=== PATIENT | male | born 1945 | race Caucasian/White ===

== ENCOUNTER 2020-12-08 07:51 | Outpatient (REF) | payer MEDICARE, SELFPAY | END 2020-12-08 07:52 | disposition home or self-care (01) | LOC: HO.HOSX 07:51 | PROVIDERS: Visit Provider Orthopaedic Surgery | DX: Z13.89 Encounter for screening for other disorder (principal) ==

== ENCOUNTER 2020-12-14 08:39 | Outpatient (REF) | payer MEDICARE, SELFPAY ==
--- NOTE | ~2020-12-14 | XR_ITS ---
EXAMINATION: XR PELVIS CLINICAL INFORMATION: Left hip pain COMPARISON: None TECHNIQUE: AP view of the pelvis. FINDINGS: There are 3 screws seen in the left proximal femur and probable old healed left femoral neck fracture.. There is collapse of the left femoral head, cortical irregularity and increased sclerosis. Findings are questionable for AVN. The right hip joint is normal appearing. Bones of the visualized pelvis are normal. There is soft tissue arterial calcification. XR/XR pelvis 1-2V IMPRESSION: Orthopedic hardware with 3 screws in the left proximal femur. Abnormal contour to the left femoral head with flattening and increased sclerosis questionable for AVN.
== END 2020-12-14 08:40 | disposition home or self-care (01) ==
LOC: HO.HOSX 08:39
PROVIDERS: Visit Provider Orthopaedic Surgery
DX: Z13.89 Encounter for screening for other disorder (principal)

== ENCOUNTER → 2020-12-18 14:40 | Outpatient (BNVA) | payer MEDICARE, SELFPAY | PROVIDERS: Visit Provider Orthopaedic Surgery | DX: M87.052 Idiopathic aseptic necrosis of left femur (principal); Z96.9 Presence of functional implant, unspecified | CPT/HCPCS: 72170; 99202 ==

== ENCOUNTER 2021-01-24 12:53 | Emergency (ER) | payer OTHER, SELFPAY ==
[2021-01-24 13:02] VITALS: BP 130/64; PULSE 64; RESP 16; TEMP 36.9; O2SAT 97; BMI 26.6
--- NOTE | 2021-01-24 13:20 | ED.GENADULT ---
HPI - General Adult General Chief complaint: General Medical Stated complaint: LEFT HIP PAIN Time Seen by Provider: 01/24/21 13:08 Source: EMS Mode of arrival: EMS Limitations: no limitations History of Present Illness HPI narrative: 75-year-old male with past medical history of hypertension here with complaints of left hip pain. The patient tells me that in 2018 he had 3 screws placed in his left hip for a fracture by [facility]. For the last 6 months he has had increasing pain to the left hip to the point now where he cannot ambulate due to the pain. He has been seen by [facility] Dr. Ken. He had x-rays of the hip December 18 which were concerning for avascular necrosis. He was scheduled for surgical repair January 16 but per patient he was unable to complete his pre operative clearance and so this was rescheduled. Unfortunately over the last 2 days his pain has become so severe that he cannot walk. He tells me he called orthopedic office today and was referred into the emergency department for further evaluation. Related Data Home Medications Medication Instructions Recorded Confirmed atenolol 50 mg tablet 50 mg PO DAILY 12/18/20 lorazepam 2 mg tablet 2 mg PO TID PRN 12/18/20 Previous Rx's Medication Instructions Recorded oxycodone 5 mg PO Q4H PRN #10 tab 01/24/21 Allergies Allergy/AdvReac Type Severity Reaction Status Date / Time No Known Allergies Allergy Verified 12/18/20 15:11 Review of Systems Review of Systems: Yes all other systems are reviewed and are negative Constitutional: Constitutional: Reports no additional constitutional complaints, Denies body ache(s), Denies chills, Denies fever(s), Denies headache(s) and Denies weakness Eyes: Eyes: Reports no additional eye complaints and Denies change in vision ENT: Reports system reviewed and no additional complaints, except as documented, Denies dizziness, Denies headache(s), Denies nasal congestion, Denies nasal discharge and Denies neck pain Cardiovascular: Cardiovascular: Reports no additional cardiovascular complaints, Denies chest pain, Denies leg edema and Denies dyspnea Respiratory: Respiratory: Reports no additional respiratory complaints, Denies cough and Denies dyspnea Gastrointestinal: Gastrointestinal: Reports no additional gastrointestinal complaints, Denies abdominal pain, Denies diarrhea, Denies nausea and Denies vomiting Genitourinary: Genitourinary: Denies urinary incontinence Musculoskeletal: Musculoskeletal: Reports no additional musculoskeletal complaints, Denies back pain, Reports arthralgias, Denies joint swelling, Reports limited range of motion, Denies neck pain, Denies numbness and Denies tingling Integumentary/Breasts: Skin/Breast: Reports system reviewed and no additional complaints, except as docu and Denies rash Neurologic: Reports system reviewed and no additional complaints, except as documented, Denies Abnormal speech present, Denies dizziness, Denies headache(s), Denies numbness, Denies tingling and Denies weakness [facility] Past Medical History Attestation statement: The following information was validated with the patient. 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 Physical Exam Vital Signs: Vital Signs: Last Vital Signs Temp 98.4 F 01/24/21 13:02 Pulse 64 01/24/21 13:02 Resp 16 01/24/21 13:02 BP 130/64 01/24/21 13:02 Pulse Ox 97 01/24/21 13:02 Body Mass Index 26.6 Const: General: cooperative, healthy appearing, comfortable and no acute distress Orientation/consciousness: patient oriented x3 Limitations: no limitations HENMT: Head: Yes normal to inspection Ears: hearing grossly normal bilaterally General nose exam: Normal external nose present Face and sinus: Yes normal facial exam Mouth: Normal oral and palatal mucosa present Throat: Yes posterior oropharynx normal Eyes: General: appearance normal, both eyes and all related structures Pupils: Equal, round and reactive pupils present Neck: Neck: Yes normal visual inspection Chest: Chest palpation & inspection: normal inspection of the chest Resp: Effort & Inspection: normal respiratory effort Auscultation: clear to auscultation bilaterally Cardio: Rate: regular rate Rhythm: regular rhythm Peripheral pulses: Peripheral pulses 2+ throughout GI: Inspection: Yes normal to inspection Palpation (GI): Soft to palpation and nontender Auscultation: normal bowel sounds Back/Spine/Pelvis: Thoracic/Lumbar Spine: thoracic and lumbar spine normal to inspection Skin: General skin exam: no rashes or lesions noted Neuro: General: patient oriented x3, no focal motor deficits and normal sensation to monofilament Cranial nerves: Yes Equal, round and reactive pupils present Cognition (Neuro): normal cognition Speech: No Abnormal speech present Gait exam (Neuro): Normal gait present Motor exam (neuro): 5/5 motor strength present throughout Extrem: General: Yes normal to inspection, Yes no pedal edema and Yes no calf tenderness Course Course Course Narrative: 75-year-old male here with acute on chronic left hip pain in the setting of a recent x-ray which was concerning for AVN. Outpatient surgery was postponed due to lacking preop there of clearance. Now can ambulate due to weight. Will discuss patient with his orthopedic 1415-discussed patient with orthopedic YARI Tinsley. She told me that the patient was recommended to have a total hip replacement due to AVN and hardware removal. However the patient needed preop clearance and has not completed his clearance. They tell me that they are unable to perform surgery until he was medically cleared. I discussed this with the patient. I did discuss with him that he may be placed in short-term rehab pending his completion of his preoperative clearance to be feels like he is unsafe to be home. He declined this. He tells me he is able to walk 3-4 steps with his walker at home and feels safe with this plan of care. I offered case management and physical therapy evaluation but the patient declined this and would like to go home immediately. I asked him how he was going to get to his preoperative clearance appointments and he tells me he has a friend who can assist him with this. Lengthy discussion at the bedside >15 minutes about plan of care. Patient resistant to all alternatives with the exception of discharge home. Reviewed worrisome signs and symptoms and when to return to the emergency department. Comfortable discharge home. Discharge Plan Discharge Clinical Impression: Avascular necrosis of bone of left hip Patient Disposition: Home, Self-Care Instructions: Hip Pain (ED) Additional Instructions: After speaking to orthopedics they tell me that you need to obtain preoperative clearance prior to them doing surgery on you. You were offered short-term rehab pending your clearance but you declined this Prescriptions: New oxycodone 5 mg tablet 5 mg PO Q4H PRN (Reason: pain) Qty: 10 RF: 0 No Action lorazepam 2 mg tablet 2 mg PO TID PRNRF: 0 atenolol 50 mg tablet 50 mg PO DAILY RF: 0 Referrals: Osvaldo Ken MD [Physician] - 2 days
--- NOTE | 2021-01-24 14:41 | PC.NURSE ---
patients called this facility verbally aggressive to staff and audibly upset regarding the fact that the patient is in too much pain and is unable to ambulate at home. This RN informed the patients that he needs preoperative testing in order to have the surgery per the Orthopedics team at [facility]. In the mean time, pain medication was sent to the patients pharmacy and short term rehab was offered to the patient. Patient denied the need for short term rehab and is calm and appropriate waiting for an ambulance to bring him home.
== END 2021-01-24 16:44 | disposition home or self-care (01) ==
PROVIDERS: Emergency Provider Emergency Medicine
DX: M87.052 Idiopathic aseptic necrosis of left femur (principal); M25.552 Pain in left hip; I10 Essential (primary) hypertension; F17.210 Nicotine dependence, cigarettes, uncomplicated; Z96.9 Presence of functional implant, unspecified
CPT/HCPCS: 99283

== ENCOUNTER 2021-03-15 08:47 | Outpatient (REF) | payer MEDICARE, SELFPAY ==
--- NOTE | ~2021-03-15 | XR_ITS ---
EXAMINATION: XR PELVIS XR HIP, LEFT CLINICAL INFORMATION: Pain. COMPARISON: Most recent pelvic radiograph dated 12/18/2020 TECHNIQUE: AP view of the pelvis. AP and frog-leg lateral views of the left hip. FINDINGS: Redemonstration of left proximal femoral orthopedic screws in unchanged alignment. No acute hardware fracture. No perihardware lucency to suggest loosening or infection. Redemonstration of left femoral head flattening/cortical collapse, slightly more prominent when compared to the prior examination. Severe left hip joint space narrowing with marginal osteophytes. More [id number] right hip joint space narrowing with marginal osteophytes. Pelvic phleboliths. XR/XR hip LT min 2V IMPRESSION: Left proximal femoral orthopedic screws without evidence of hardware complication. Flattening/collapse of the left femoral head, increased in prominence when compared to the most recent hip radiographs.
--- NOTE | ~2021-03-15 | XR_ITS ---
EXAMINATION: XR PELVIS XR HIP, LEFT CLINICAL INFORMATION: Pain. COMPARISON: Most recent pelvic radiograph dated 12/18/2020 TECHNIQUE: AP view of the pelvis. AP and frog-leg lateral views of the left hip. FINDINGS: Redemonstration of left proximal femoral orthopedic screws in unchanged alignment. No acute hardware fracture. No perihardware lucency to suggest loosening or infection. Redemonstration of left femoral head flattening/cortical collapse, slightly more prominent when compared to the prior examination. Severe left hip joint space narrowing with marginal osteophytes. More [id number] right hip joint space narrowing with marginal osteophytes. Pelvic phleboliths. XR/XR pelvis 1-2V IMPRESSION: Left proximal femoral orthopedic screws without evidence of hardware complication. Flattening/collapse of the left femoral head, increased in prominence when compared to the most recent hip radiographs.
== END 2021-03-15 08:48 | disposition home or self-care (01) ==
LOC: HO.HOSX 08:47
PROVIDERS: Visit Provider Orthopaedic Surgery
DX: M87.052 Idiopathic aseptic necrosis of left femur (principal); Z96.9 Presence of functional implant, unspecified
CPT/HCPCS: 72170; 73502; 99212

== ENCOUNTER 2021-04-10 06:44 | Inpatient (IN) | payer MEDICARE, SELFPAY ==
[2021-03-06 11:51] VITALS: BMI 30.4
--- NOTE | 2021-03-06 12:05 | P.CONAN_ITS ---
HPI - Anesthesia Eval Consult details Narrative: Resched to 04/04 to obtain PCP clearance 75yo M for Left Hip Total Replacement BP elevated at PCP clearance appt and PAT. Metoprolol increased to 100mg from 50mg. Has final BP review appt Friday at [place]. Instructed pt and daughter to monitor BP at home and compliance with metoprolol. REPLACED BY [facility] Active Problems Active Problems: All Active Problems (Updated 03/06/21 @ 11:37 by Marilyn Campbell RN) Retained orthopedic hardware (Acute) Avascular necrosis of bone of left hip (Acute) Past Medical History Medical History Anxiety Avascular necrosis of bone of left hip COVID-19 vaccine series completed HTN (hypertension) Hx of hepatitis C PTSD (post-traumatic stress disorder) Retained orthopedic hardware Smoker Family History Family history of problems with anesthesia: No Surgical History Surgical History History of femoral hernia repair History of hip surgery History of Problems with Anesthesia: No Social History Social History Are you a primary direct care professional to a significant other at home: No Do you presently have visiting nurse or other home services: No (Daughter Jess provides care) Alcohol intake: never Patient Tobacco Use Status: Current everyday Tobacco user Tobacco use type: Cigarette Cigarette Packs Per Day: 1 Cigarettes Per Day: 20.0 Years Smoked: 15 + service: Yes () Current occupational status: retired and disabled 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 Limited by hip pain Meds Allergies Allergy/AdvReac Type Severity Reaction Status Date / Time meperidine [From Demerol] Allergy Hives, Verified 03/15/21 10:25 Vomiting Home Medications Medication Instructions Recorded Confirmed Last Taken Type acetaminophen 500 mg tablet 1,000 mg PO Q6H PRN 03/06/21 03/06/21 Unknown History (Acetaminophen Extra Strength) metoprolol succinate 50 mg 100 mg PO DAILY 03/06/21 03/15/21 Unknown History tablet,extended release 24 hr lorazepam 0.5 mg tablet 0.5 mg PO TID PRN 03/15/21 03/15/21 Unknown History Exam Exam Date and Time: March 06, 2021 1205 Height,Weight and Vital Signs: Height 5 ft 3 in Weight 77.927 kg Pertinent Lab Results Pertinent Lab Results: [facility] PT/INR, CBC, CMP all WNL Narrative Narrative: EKG 01/2021 NSR @ 78 Cannot r/o anterior infarct, age undetermined ECHO 01/2021 Nml LV size and function with EF 60-65% No RWMA LV wall thickness is mildly increased Nml RV size and function LA is mildly dilated No significant valvular disease Airway TM Dist: >3cm Neck ROM: Full Denture: Upper and Lower (No lower teeth) Assessment and Plan Assessment Anesthesia Assessment: Anesthesia Plan Discussed and PAT Visit Final Anesthetic Review Family History of Problems with Anesthesia: No History of Problems with Anesthesia: No
[2021-03-15 11:42] VITALS: BP 182/111; PULSE 58; RESP 20; O2SAT 99
[2021-03-15 15:35] LABS: MRSA Nasal PCR NEGATIVE (Negative); SA Nasal PCR NEGATIVE (Negative)
--- NOTE | 2021-04-09 09:05 | P.CONAN_ITS ---
Documented by User: Venessa He NP 04/09/21 09:08 HPI - Anesthesia Eval Consult details Narrative: Resched to 04/04 to obtain PCP clearance 75yo M for Left Hip Total Replacement BP elevated at PCP clearance appt and PAT. Metoprolol increased to 100mg from 50mg. Has final BP review appt Friday at [place]. Instructed pt and daughter to monitor BP at home and compliance with metoprolol. BP remained elevated at initial BP check. 04/02/21 [facility] visit with BP check = 130/84 PCP cleared at low risk [facility] Active Problems Active Problems: All Active Problems (Updated 03/06/21 @ 11:37 by Marilyn Campbell RN) Retained orthopedic hardware (Acute) Avascular necrosis of bone of left hip (Acute) Past Medical History Medical History Anxiety Avascular necrosis of bone of left hip COVID-19 vaccine series completed HTN (hypertension) Hx of hepatitis C PTSD (post-traumatic stress disorder) Retained orthopedic hardware Smoker Family History Family history of problems with anesthesia: No Surgical History Surgical History History of femoral hernia repair History of hip surgery History of Problems with Anesthesia: No Social History Social History Are you a primary doggy daycare activities director to a significant other at home: No Do you presently have visiting nurse or other home services: No (Daughter Jess provides care) Alcohol intake: never Patient Tobacco Use Status: Current everyday Tobacco user Tobacco use type: Cigarette Cigarette Packs Per Day: 1 Cigarettes Per Day: 20.0 Years Smoked: 15 + Smoked in Last 30 Days: Yes Patient Interested in Nicotine Replacement: No Patient Given Instructions on How to Stop Smoking: Yes Date Education Initiated: 03/15/21 Use of substances other than those prescribed or required for medical reasons: No Have you been hit, kicked, punched, or otherwise hurt by someone within the past year? 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 Meds Allergies Allergy/AdvReac Type Severity Reaction Status Date / Time meperidine [From Demerol] Allergy Hives, Verified 03/15/21 10:25 Vomiting Home Medications Medication Instructions Recorded Confirmed Last Taken Type acetaminophen 500 mg tablet 1,000 mg PO Q6H PRN 03/06/21 03/06/21 Unknown History (Acetaminophen Extra Strength) metoprolol succinate 50 mg 100 mg PO DAILY 03/06/21 03/15/21 Unknown History tablet,extended release 24 hr lorazepam 0.5 mg tablet 0.5 mg PO TID PRN 03/15/21 03/15/21 Unknown History Exam Exam Date and Time: April 09, 2021 09 Height,Weight and Vital Signs: Height 5 ft 3 in Weight 77.927 kg Last Vital Signs Pulse 58 03/15/21 11:42 Resp 20 03/15/21 11:42 BP 182/111 H 03/15/21 11:42 Pulse Ox 99 03/15/21 11:42 Pertinent Lab Results Pertinent Lab Results: Laboratory Tests 03/15/21 03/15/21 11:52 12:31 Nasal Screen MRSA (PCR) NEGATIVE Nasal S. aureus Screen NEGATIVE Nasal MRSA/S.aureus Interp SEE NOTE Blood Type B Negative Antibody Screen NEGATIVE [facility] PT/INR, CBC, CMP all WNL Narrative Narrative: EKG 01/2021 NSR @ 78 Cannot r/o anterior infarct, age undetermined ECHO 01/2021 Nml LV size and function with EF 60-65% No RWMA LV wall thickness is mildly increased Nml RV size and function LA is mildly dilated No significant valvular disease Assessment and Plan Assessment Anesthesia Assessment: Anesthesia Plan Discussed, Smoking Cess. Discussed and PAT Visit (03/06/21) Final Anesthetic Review Family History of Problems with Anesthesia: No History of Problems with Anesthesia: No Documented by User: Yani Westfall MD 04/10/21 07:08 [facility] Past Medical History Medical History Anxiety Avascular necrosis of bone of left hip COVID-19 vaccine series completed HTN (hypertension) Hx of hepatitis C PTSD (post-traumatic stress disorder) Retained orthopedic hardware Smoker Surgical History Surgical History History of femoral hernia repair History of hip surgery Social History Social History Are you a primary doggy daycare activities director to a significant other at home: No Do you presently have visiting nurse or other home services: No (Daughter Jess provides care) Alcohol intake: never Patient Tobacco Use Status: Current everyday Tobacco user Tobacco use type: Cigarette Cigarette Packs Per Day: 1 Cigarettes Per Day: 20.0 Years Smoked: 15 + Smoked in Last 30 Days: Yes Patient Interested in Nicotine Replacement: No Patient Given Instructions on How to Stop Smoking: Yes Date Education Initiated: 03/15/21 Use of substances other than those prescribed or required for medical reasons: No Have you been hit, kicked, punched, or otherwise hurt by someone within the past year? 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 Meds Allergies Allergy/AdvReac Type Severity Reaction Status Date / Time meperidine [From Demerol] Allergy Hives, Verified 03/15/21 10:25 Vomiting Home Medications Medication Instructions Recorded Confirmed Last Taken Type acetaminophen 500 mg tablet 1,000 mg PO Q6H PRN 03/06/21 03/06/21 Unknown History (Acetaminophen Extra Strength) metoprolol succinate 50 mg 100 mg PO DAILY 03/06/21 03/15/21 Unknown History tablet,extended release 24 hr lorazepam 0.5 mg tablet 0.5 mg PO TID PRN 03/15/21 03/15/21 Unknown History Exam Airway Mallampati Class: II TM Dist: >3cm Neck ROM: Full Denture: Upper Assessment and Plan Final Anesthetic Review NPO: Yes ASA Class: II Final Preanesthetic Review: No Changes in Pt Med Stat, Meds/Allgs Chart Rev iewed, Consent Obtained/Reviewed and Anes Risks/Benef Reviewed Patient Risk: Low Procedure Risk: Intermediate Assessment/Block/Sedation in SS: Assess/Block/Sedation-SS Anesthetic Plan Anesthetic Plan: GA Disposition: Standard PACU
[2021-04-10] VITALS (15 sets, daily range): BP systolic 95–137; BP diastolic 64–107; PULSE 76–94; RESP 16–18; TEMP 36.1–37; O2SAT 96–100
--- NOTE | ~2021-04-10 | XR_ITS ---
EXAMINATION: XR PELVIS CLINICAL INFORMATION: Left hip replacement COMPARISON: Previous x-ray 03/15/2021 TECHNIQUE: AP view of the pelvis. FINDINGS: There is a new left hip replacement in satisfactory position. No fracture or dislocation is seen. There are postoperative changes to the soft tissues. There is mild arthritis at the right hip. There are degenerative changes of the lower lumbar spine. XR/XR pelvis 1-2V IMPRESSION: Satisfactory appearance of left hip replacement.
[2021-04-10] MEDS: oxyCODONE HCl ER 10 MG TAB.ER.12H PO ×2 (07:06→21:37)
[2021-04-10 07:25] LABS: COVID-19 Test Negative (Negative)
--- NOTE | 2021-04-10 07:34 | MHC.SHP ---
Pre-Procedural Eval Section A Date of Service: 04/10/21 The patient is an INPATIENT: No Changes since office visit: Yes Patient answered all questions; No Cold of Flu in the past 2 weeks, No New Medical Problems and No Changes in Medication The History & Physical has been completed within 30 days and I have reviewed it.: Yes Section B Chief Complaint: Avascular necrosis left hip Allergies: Allergies Allergy/AdvReac Type Severity Reaction Status Date / Time meperidine [From Demerol] Allergy Hives, Verified 03/15/21 10:25 Vomiting Plan I have reviewed the history and physical and performed a pertinent physical examination on my patient. No changes have occurred unless specified.
--- NOTE | 2021-04-10 10:01 | PM.OP ---
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
--- NOTE | 2021-04-10 10:15 | P.OP_ITS ---
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 All bony prominences were well padded and the limb was prepped and draped in standard sterile fashion. Time-out was called to identify proper site procedure proper surgeon IV antibiotics and 1 g of transaxemic acid were administered. I began by making a curvilinear incision over the posterolateral aspect of the greater trochanter. Dissection was taken down to the tensor fascia which was incised in line with the incision and a Charnley retractor was placed. Cautery was used to maintain hemostasis. The hip was internally rotated and the external rotators were identified. The vessels were cauterized and a full-thickness capsular/external rotator layer was developed starting just proximal to the piriformis. This layer was tagged and a dull Hohmann retractor was placed underneath the neck in the hip was dislocated. The head was deformed and diminutive with violation of the articular surface with a screw head. I then made an incision over the prior hip screw incision and remoived the three cannulated hip screws without complication. A neck cut was then made 1 cm proximal to the lesser trochanter and the head and neck were removed. I then placed my anterior-posterior acetabular retractors and performed a labrectomy. The superior wall was partially eroded. I then started with a 46 and sequentially reamed up to a size 54 and impacted a 54 multi-hole revision cup at approximately 45 degrees of inclination and 25 degrees of version. Because of the absent postero-superior wall I placed 2 35 mm acetabular screws using standard AO technique. I then placed a 20 deg post lipped liner and turned my attention to the femur. I identified the piriformis insertion and used this as a starting point for my kayla cutter. The medius tendon was protected with a Hibs retractor. I then used a Charnley awl to identify the canal and a curved curette to remove the lateral bone. I irrigated copiously. I then reamed to a 10 and then sequentially broached in the patient's natural version to a size #10 and placed my trial implants. He had been short for a long time and was tight. Using a trail head I took the hip through range of motion. I was very satisfied with the stability and length was as much as I could obtain using a 0 head Therefore I removed all instrumentation and copiously irrigated. I placed my final femoral implant and again took the hip through range of motion and was satisfied with t he stability and length. I placed my final +0 26 cobablt chrome head. I then irrigated for 3 minutes with iodine and placed 1 g of local tranaxemic acid. I then performed a capsular closure with 2.0 fiberwire, Addie's fascia with 0 Vicryl, subcuticular with 2-0 Vicryl and the skin with lior. Patient was placed into a sterile dressing. Radiographs were obtained at the completion of the case and I was satisfied with the component position. Patient was extubated brought to the recovery room in stable condition.
[2021-04-10] MEDS: Dextrose 5 % and 0.45 % NaCl 1,000 ML 80 ML IVCONT (12:56)
[2021-04-10] MEDS: 0.9 % Sodium Chloride Flush 3 ML SYRINGE IVFLUSH (12:56)
--- NOTE | 2021-04-10 14:57 | P.CONHOSP_ITS ---
History of Present Illness Data of Consult Service Date: 04/10/21 Requesting physician: Osvaldo IZQUIERDO Reason for consult: medical co-management 75yo M with HTN, PTSD, anxiety, tobacco abuse who underwent left JESSICA + TRACEE today for post traumatic OA. He takes metoprolol and lorazepam. He smokes less than 1/2 ppd. No hx of [place] or CVA. Denies fever, chills, chest pain, or dyspnea. Review of Systems Review of Systems: Yes all other systems are reviewed and are negative [facility] Medical History Anxiety Avascular necrosis of bone of left hip COVID-19 vaccine series completed HTN (hypertension) Hx of hepatitis C PTSD (post-traumatic stress disorder) Retained orthopedic hardware Smoker Pertinent family history: no anesthesia complications Surgical History History of femoral hernia repair History of hip surgery Social History Are you a primary care aide to a significant other at home: No Do you presently have visiting nurse or other home services: No (Daughter Jess provides care) Alcohol intake: never Patient Tobacco Use Status: Current everyday Tobacco user Tobacco use type: Cigarette Cigarette Packs Per Day: 1 Cigarettes Per Day: 20.0 Years Smoked: 15 + Smoked in Last 30 Days: Yes Patient Interested in Nicotine Replacement: No Patient Given Instructions on How to Stop Smoking: Yes Date Education Initiated: 03/15/21 Second Hand Smoke Exposure: No Use of substances other than those prescribed or required for medical reasons: No Have you been hit, kicked, punched, or otherwise hurt by someone within the past year? 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 Meds Allergies Allergy/AdvReac Type Severity Reaction Status Date / Time meperidine [From Demerol] Allergy Hives, Verified 03/15/21 10:25 Vomiting Active Medications: Current Medications Acetaminophen (Acetaminophen 325 Mg Tablet) 650 mg PO ONCE PRN PRN Reason: Pain, Mild (Pain Scale 1-3) Acetaminophen (Acetaminophen 325 Mg Tablet) 650 mg PO Q6H PRN PRN Reason: Pain, Mild (Pain Scale 1-3) Celecoxib (Celecoxib 200 Mg Capsule) 200 mg PO BID [facility] Docusate Sodium (Docusate Sodium 100 Mg Capsule) 100 mg PO BID [facility] Hydromorphone HCl (Hydromorphone Hcl 0.5 Mg/0.5 Ml Syringe) 0.5 mg IVPUSH Q5M PRN; Protocol PRN Reason: Pain, Severe (Pain Scale 7-10) Hydromorphone HCl (Hydromorphone Hcl 0.5 Mg/0.5 Ml Syringe) 0.25 mg IVPUSH Q4H PRN; Protocol PRN Reason: Pain, Severe (Pain Scale 7-10) Dextrose/Sodium Chloride (D51/2ns) 1,000 mls @ 80 mls/hr IVCONT .[id number] [facility] Last Admin: 04/10/21 12:56 Dose: 80 mls/hr Documented by: Cefazolin Sodium/Dextrose (Ancef) 2 gm in 50 mls @ 100 mls/hr IV POSTOP [facility] Nicotine (Nicotine 7 Mg Patch.Td24) 7 mg TRANSDERMA DAILY [facility] Ondansetron HCl (Ondansetron Hcl 4 Mg/2 Ml Vial) 4 mg IVPUSH ONCE PRN PRN Reason: Nausea and Vomiting Ondansetron HCl (Ondansetron Hcl 4 Mg/2 Ml Vial) 4 mg IVPUSH Q8H PRN PRN Reason: Nausea and Vomiting Oxycodone HCl (Oxycodone Hcl Immed Release 5 Mg Tablet) 5 mg PO ONCE PRN PRN Reason: Pain, Severe (Pain Scale 7-10) Oxycodone HCl (Oxycodone Hcl Immed Release 5 Mg Tablet) 10 mg PO Q4H PRN PRN Reason: Pain, Moderate (Pain Scale 4-6 Oxycodone HCl (Oxycodone Hcl Er 10 Mg Tab.Er.12h) 10 mg PO BID [facility] Sodium Chloride (0.9 % Sodium Chloride Flush 3 Ml Syringe) 3 ml IVFLUSH QSHIFT [facility] Last Admin: 04/10/21 12:56 Dose: 3 ml Documented by: Home Medications Medication Instructions Recorded Confirmed Last Taken Type acetaminophen 500 mg tablet 1,000 mg PO Q6H PRN 03/06/21 03/06/21 Unknown History (Acetaminophen Extra Strength) metoprolol succinate 50 mg 100 mg PO DAILY 03/06/21 03/15/21 Unknown History tablet,extended release 24 hr lorazepam 0.5 mg tablet 0.5 mg PO TID PRN 03/15/21 03/15/21 Unknown History Physical Exam Vital Signs and Narrative: Vital Signs: Last Vital Signs Temp 97.7 F 04/10/21 12:34 Pulse 76 04/10/21 14:05 Resp 16 04/10/21 12:34 BP 107/87 04/10/21 14:05 Pulse Ox 100 04/10/21 14:05 Body Mass Index 30.4 Gen: in no acute distress HEENT: sclera anicteric, moist mucus membranes Neck: supple Lungs: clear to auscultation bilaterally Heart: regular rate and rhythm, no murmurs Abd: soft, non-tender, non-distended Ext: no edema Skin: warm/well-perfused Neuro: alert and oriented x3, no focal findings Psych: appropriate affect Results Labs Labs: Laboratory Results - last 24 hr 04/10/21 04/10/21 06:37 06:48 COVID-19 (MARK[facility]) Negative COVID-19 Clin Com See Note Blood Type B Negative Antibody Screen NEGATIVE Imaging Radiologist's Impressions: Impressions Pelvis X-Ray 04/10/21 09:43 IMPRESSION: Satisfactory appearance of left hip replacement. Assessment and Plan (1) HTN (hypertension): Status: Acute 75yo M with HTN, PTSD, anxiety, tobacco abuse who underwent left JESSICA + TRACEE today for post traumatic OA. Medicine consultation for management of comorbid issues # HTN - metoprolol succinate # PTSD/anxiety - prn lorazepam # tobacco abuse - NRT # VTE ppx - pharmacologic prophylaxis for 28-35d postop as per primary Ortho team
--- NOTE | 2021-04-10 14:59 | PC.NURSE ---
Patient arrived from PACU and is A&Ox3 but has slurred speech. Head to toe neuro assessment performed by this nurse and was WNL besides slurred speech. Dr. Puckett was made aware and assessed patient. No new orders at this time.
[2021-04-10] MEDS: Nicotine 7 MG PATCH.TD24 TRANSDERMA (15:50)
[2021-04-10] MEDS: LORazepam 0.5 MG TABLET PO (15:51)
[2021-04-10] MEDS: Celecoxib 200 MG CAPSULE PO (21:37)
[2021-04-10] MEDS: HYDROmorphone HCl 0.5 MG/0.5 ML SYRINGE 0.25 MG IVPUSH (22:40)
[2021-04-11] VITALS (7 sets, daily range): BP systolic 95–131; BP diastolic 65–75; PULSE 89–103; RESP 16–18; TEMP 36.1–37.1; O2SAT 95–99
[2021-04-11] MEDS: Dextrose 5 % and 0.45 % NaCl 1,000 ML 80 ML IVCONT ×2 (02:36→15:38)
[2021-04-11] MEDS: HYDROmorphone HCl 0.5 MG/0.5 ML SYRINGE 0.25 MG IVPUSH ×2 (05:03→15:35)
[2021-04-11 06:26] LABS: Hemoglobin 12.2 g/dl (14.0-18.0); Imm Gran Abs Auto 0.06 X10*3/uL (0.00-0.03); MANUAL DIFF FLAG SCAN; Monocytes Percent Auto 7.5 % (2-11); PLT CLUMP 1; SCAN SMEAR FLAG 1
[2021-04-11 06:28] LABS: Basophils Percent Auto 0.3 % (0-2); Eosinophils Absolute Auto 0.1 X10*3/uL (0.0-0.4); Eosinophils Percent Auto 0.5 % (0-4); Hematocrit 34.5 % (42-52); Imm Gran Pct Auto 0.7 % (0.0-0.4); Lymphocytes Absolute Auto 2.2 X10*3/uL (1.2-4.9); Lymphocytes Percent Auto 23.8 % (20-40); Mean Corpuscular HGB Conc 35.4 g/dl (31.0-36.0); Mean Corpuscular Hemoglobin 29.7 pg (27.0-33.0); Mean Corpuscular Volume 83.9 fL (80-98); Mean Platelet Volume 10.7 fL (9.4-12.4); Monocytes Absolute Auto 0.7 X10*3/uL (0.1-1.2); Neutrophils Absolute Auto 6.2 X10*3/uL (2.0-8.3); Neutrophils Percent Auto 67.2 % (45-73); Red Blood Count 4.11 X10*6/uL (4.60-5.80); Red Cell Distribution Width 12.7 % (11.0-16.0); White Blood Count 9.2 X10*3/uL (4.8-10.8)
[2021-04-11 06:31] LABS: Platelet Count 136 X10*3/uL (160-400)
[2021-04-11 06:32] LABS: SLIDE REVIEW VERIFIED
[2021-04-11 06:35] LABS: Anion Gap 11 (12-20); Blood Urea Nitrogen 11 mg/dL (9-16); Calcium 8.1 mg/dL (8.4-10.2); Carbon Dioxide 27 mmol/L (22-29); Chloride 99 mmol/L (96-108); Creatinine Clr Calc Pharmacy 75.9; Estimated Glomerular Filt Rate > 60; Glucose Fasting 109 mg/dL (60-99); Potassium 3.9 mmol/L (3.3-5.1); Sodium 133 mmol/L (135-145)
[2021-04-11] MEDS: Nicotine 7 MG PATCH.TD24 TRANSDERMA (08:18)
[2021-04-11] MEDS: oxyCODONE HCl ER 10 MG TAB.ER.12H PO ×2 (08:19→21:08)
[2021-04-11] MEDS: Celecoxib 200 MG CAPSULE PO ×2 (08:19→21:08)
[2021-04-11] MEDS: Docusate Sodium 100 MG CAPSULE PO (08:19)
--- NOTE | 2021-04-11 09:42 | PM.PNORT ---
Subjective Subjective Date of Service: 04/11/21 Interval history: POD1 s/p LTHA. Patient resting comfortably in bed. Pain is well managed. No overnight events. Physical Exam Vital Signs: Vital Signs: Last Vital Signs Temp 98.4 F 04/11/21 07:35 Pulse 99 04/11/21 07:35 Resp 16 04/11/21 07:35 BP 119/75 04/11/21 07:35 Pulse Ox 98 04/11/21 09:30 Body Mass Index 30.4 Const: General: cooperative, healthy appearing and no acute distress Resp: Effort & Inspection: normal respiratory effort and able to speak in complete sentences Cardio: Rate: regular rate Peripheral pulses: Peripheral pulses 2+ throughout GI: Palpation (GI): Soft to palpation Skin: Lesions: no lesions Rashes: no rashes Extrem: Other: LT hip aquacel is clean. dry, and intact. Patient is able to dorsiflex and plantarflex. NVI Procedures Date of Service Date of Service: 04/11/21 Progress Note: A&P Assessment and plan (1) S/P total left hip arthroplasty: Status: Acute Assessment and Plan: Continue pain mgmnt Begin Lovenox for dvt ppx begin PT for LTHA Dispo planning-Pending PT eval, pain mgmnt Fall Risk Details Current Medications: Current Medications Acetaminophen (Acetaminophen 325 Mg Tablet) 650 mg PO ONCE PRN PRN Reason: Pain, Mild (Pain Scale 1-3) Acetaminophen (Acetaminophen 325 Mg Tablet) 650 mg PO Q6H PRN PRN Reason: Pain, Mild (Pain Scale 1-3) Celecoxib (Celecoxib 200 Mg Capsule) 200 mg PO BID [facility] Last Admin: 04/11/21 08:19 Dose: 200 mg Documented by: Docusate Sodium (Docusate Sodium 100 Mg Capsule) 100 mg PO BID [facility] Last Admin: 04/11/21 08:19 Dose: 100 mg Documented by: Hydromorphone HCl (Hydromorphone Hcl 0.5 Mg/0.5 Ml Syringe) 0.5 mg IVPUSH Q5M PRN; Protocol PRN Reason: Pain, Severe (Pain Scale 7-10) Hydromorphone HCl (Hydromorphone Hcl 0.5 Mg/0.5 Ml Syringe) 0.25 mg IVPUSH Q4H PRN; Protocol PRN Reason: Pain, Severe (Pain Scale 7-10) Last Admin: 04/11/21 05:03 Dose: 0.25 mg Documented by: Dextrose/Sodium Chloride (D51/2ns) 1,000 mls @ 80 mls/hr IVCONT .[id number] [facility] Last Admin: 04/11/21 02:36 Dose: 80 mls/hr Documented by: Cefazolin Sodium/Dextrose (Ancef) 2 gm in 50 mls @ 100 mls/hr IV POSTOP [facility] Lorazepam (Lorazepam 0.5 Mg Tablet) 0.5 mg PO TID PRN PRN Reason: Anxiety Last Admin: 04/10/21 15:51 Dose: 0.5 mg Documented by: Metoprolol Succinate (Metoprolol Succinate Er 100 Mg Tab.Er.24h) 100 mg PO DAILY [facility]; Protocol Last Admin: 04/11/21 08:27 Dose: Not Given Documented by: Nicotine (Nicotine 7 Mg Patch.Td24) 7 mg TRANSDERMA DAILY [facility] Last Admin: 04/11/21 08:18 Dose: 7 mg Documented by: Ondansetron HCl (Ondansetron Hcl 4 Mg/2 Ml Vial) 4 mg IVPUSH ONCE PRN PRN Reason: Nausea and Vomiting Ondansetron HCl (Ondansetron Hcl 4 Mg/2 Ml Vial) 4 mg IVPUSH Q8H PRN PRN Reason: Nausea and Vomiting Oxycodone HCl (Oxycodone Hcl Immed Release 5 Mg Tablet) 5 mg PO ONCE PRN PRN Reason: Pain, Severe (Pain Scale 7-10) Oxycodone HCl (Oxycodone Hcl Immed Release 5 Mg Tablet) 10 mg PO Q4H PRN PRN Reason: Pain, Moderate (Pain Scale 4-6 Oxycodone HCl (Oxycodone Hcl Er 10 Mg Tab.Er.12h) 10 mg PO BID [facility] Last Admin: 04/11/21 08:19 Dose: 10 mg Documented by: Sodium Chloride (0.9 % Sodium Chloride Flush 3 Ml Syringe) 3 ml IVFLUSH QSHIFT [facility] Last Admin: 04/11/21 07:18 Dose: Not Given Documented by: Time Spent With Patient Time: Total time spent is greater than 50% in coordination of care (as documented) at patient's floor/unit and/or counseling patient: Time with patient: less than 15 minutes Quality Stroke Does the patient have a stroke diagnosis?: No VTE Prior VTE?: No VTE Risk Level:: Surgical - high VTE Device Contraindication: N/A - Device Ordered VTE Drug Contraindication: N/A - Med Ordered
--- NOTE | 2021-04-11 09:51 | HO.POSTANES ---
Post Anesthesia Evaluation Post Anesthesia Evaluation Vital Signs: Vital Signs Temp Pulse Resp BP Pulse Ox 04/11/21 09:30 98 04/11/21 07:35 98.4 F 99 16 119/75 98 04/11/21 04:00 97 F 89 18 114/72 99 04/10/21 23:47 96.9 F 88 18 108/69 97 Anesthesia: General Endotracheal-GETA Mental Status: Awake Pain Control: Satisfactory Nausea/Vomiting: None Hydration: Adequate Anesthesia-Related Issues: No Anes. Related Issues
--- NOTE | 2021-04-11 10:24 | MHC.CM.PN ---
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 LAUREANO AT THE [facility], PT REPORTS HE HAS A HCP AND IT IS HIS DTR CHARU RETANA [phone], COPY REQUESTED. D/C PLAN: HOME W/SERVICES,DTR VS AMBULANCE FOR TRANSPORT
[2021-04-11] MEDS: ondansetron HCL 4 MG/2 ML VIAL IVPUSH (10:49)
[2021-04-11] MEDS: HYDROmorphone HCl 0.5 MG/0.5 ML SYRINGE IVPUSH (10:49)
[2021-04-11] MEDS: LORazepam 0.5 MG TABLET PO ×2 (10:49→16:18)
--- NOTE | 2021-04-11 10:56 | HO.PM.IMPN ---
Subjective Subjective Date of Service: 04/11/21 Interval History: Postop soreness No fever No chest pain No dyspnea Review of Systems Review of Systems: Yes all other systems are reviewed and are negative Physical Exam Vital Signs: Vital Signs: Last Vital Signs Temp 98.4 F 04/11/21 07:35 Pulse 99 04/11/21 07:35 Resp 16 04/11/21 07:35 BP 119/75 04/11/21 07:35 Pulse Ox 98 04/11/21 10:03 Body Mass Index 30.4 Gen: in no acute distress HEENT: sclera anicteric, moist mucus membranes Neck: supple Lungs: clear to auscultation bilaterally Heart: regular rate and rhythm, no murmurs Abd: soft, non-tender, non-distended Ext: no edema Skin: warm/well-perfused Neuro: alert and oriented x3, no focal findings Psych: appropriate affect Objective Data Active Medications Acetaminophen (Acetaminophen 325 Mg Tablet) 650 mg PO ONCE PRN PRN Reason: Pain, Mild (Pain Scale 1-3) Acetaminophen (Acetaminophen 325 Mg Tablet) 650 mg PO Q6H PRN PRN Reason: Pain, Mild (Pain Scale 1-3) Celecoxib (Celecoxib 200 Mg Capsule) 200 mg PO BID [facility] Last Admin: 04/11/21 08:19 Dose: 200 mg Documented by: JULES Docusate Sodium (Docusate Sodium 100 Mg Capsule) 100 mg PO BID [facility] Last Admin: 04/11/21 08:19 Dose: 100 mg Documented by: JULES Enoxaparin Sodium (Enoxaparin Sodium 40 Mg/0.4 Ml Syringe) 40 mg SUBCUT Q24H [facility] Hydromorphone HCl (Hydromorphone Hcl 0.5 Mg/0.5 Ml Syringe) 0.5 mg IVPUSH Q5M PRN; Protocol PRN Reason: Pain, Severe (Pain Scale 7-10) Hydromorphone HCl (Hydromorphone Hcl 0.5 Mg/0.5 Ml Syringe) 0.25 mg IVPUSH Q4H PRN; Protocol PRN Reason: Pain, Severe (Pain Scale 7-10) Last Admin: 04/11/21 05:03 Dose: 0.25 mg Documented by: AIMEERISApple Dextrose/Sodium Chloride (D51/2ns) 1,000 mls @ 80 mls/hr IVCONT .[id number] [facility] Last Admin: 04/11/21 02:36 Dose: 80 mls/hr Documented by: AIMEERISM Cefazolin Sodium/Dextrose (Ancef) 2 gm in 50 mls @ 100 mls/hr IV POSTOP [facility] Lorazepam (Lorazepam 0.5 Mg Tablet) 0.5 mg PO TID PRN PRN Reason: Anxiety Last Admin: 04/10/21 15:51 Dose: 0.5 mg Documented by: BOBBI Metoprolol Succinate (Metoprolol Succinate Er 100 Mg Tab.Er.24h) 100 mg PO DAILY [facility]; Protocol Last Admin: 04/11/21 08:27 Dose: Not Given Documented by: JULES Non-Admin Reason: Patient Refused Nicotine (Nicotine 7 Mg Patch.Td24) 7 mg TRANSDERMA DAILY [facility] Last Admin: 04/11/21 08:18 Dose: 7 mg Documented by: JULES Ondansetron HCl (Ondansetron Hcl 4 Mg/2 Ml Vial) 4 mg IVPUSH ONCE PRN PRN Reason: Nausea and Vomiting Ondansetron HCl (Ondansetron Hcl 4 Mg/2 Ml Vial) 4 mg IVPUSH Q8H PRN PRN Reason: Nausea and Vomiting Oxycodone HCl (Oxycodone Hcl Immed Release 5 Mg Tablet) 5 mg PO ONCE PRN PRN Reason: Pain, Severe (Pain Scale 7-10) Oxycodone HCl (Oxycodone Hcl Immed Release 5 Mg Tablet) 10 mg PO Q4H PRN PRN Reason: Pain, Moderate (Pain Scale 4-6 Oxycodone HCl (Oxycodone Hcl Er 10 Mg Tab.Er.12h) 10 mg PO BID [facility] Last Admin: 04/11/21 08:19 Dose: 10 mg Documented by: JULES Pharmacy Consult (Consult Rx Perform Med Rec) 1 each MISCELLANE ONCE PRN PRN Reason: Consult order Sodium Chloride (0.9 % Sodium Chloride Flush 3 Ml Syringe) 3 ml IVFLUSH QSHIFT [facility] Last Admin: 04/11/21 07:18 Dose: Not Given Documented by: JULES Non-Admin Reason: IV Running Labs CBC & Chem 7: 04/11/21 05:56 04/11/21 05:56 Labs: Laboratory Results - last 24 hr 10/06/21 10/06/21 05:56 05:56 MCV 83.9 MCH 29.7 MCHC 35.4 RDW 12.7 Plt Count 136 L MPV 10.7 Immature Gran % (Auto) 0.7 H Neut % (Auto) 67.2 Lymph % (Auto) 23.8 [place] % (Auto) 7.5 Eos % (Auto) 0.5 Baso % (Auto) 0.3 Lymph # (Auto) 2.2 [place] # (Auto) 0.7 Eos # (Auto) 0.1 Baso # (Auto) 0.0 Abs Immat Gran (auto) 0.06 H Absolute Neuts (auto) 6.2 Absolute Nucleated RBC 0.000 Nucleated RBC % (auto) 0.0 Smear Tech's Comments VERIFIED Anion Gap 11 L Estim Creat Clear Calc 75.9 Estimated GFR > 60 Fasting Glucose 109 H Calcium 8.1 L Assessment and Plan (1) HTN (hypertension): Status: Acute Assessment and Plan: 75yo M with HTN, PTSD, anxiety, tobacco abuse POD #1 left JESSICA + TRACEE for pos traumatic OA medicine consultation for management of comorbid issues # HTN - continue metoprolol succinate # PTSD/anxiety - prn lorazepam # tobacco abuse - NRT # VTE ppx - pharmacologic prophylaxis for 28-35d postop with LMWH as per primary Ortho team Quality Stroke Does the patient have a stroke diagnosis?: No VTE Prior VTE?: No VTE Risk Level:: Surgical - high VTE Device Contraindication: N/A - Device Ordered VTE Drug Contraindication: N/A - Med Ordered
--- NOTE | 2021-04-11 12:40 | PHA.MEDREC ---
Pharmacy Consult ? Medication Reconciliation Pharmacy has completed the medication reconciliation. There are no remarkable issues. Patient report he takes 3 BP medications and ativan. [facility] Ricci JuárezD
[2021-04-11] MEDS: 0.9 % Sodium Chloride Flush 3 ML SYRINGE IVFLUSH (15:39)
[2021-04-12] VITALS (9 sets, daily range): BP systolic 109–128; BP diastolic 64–86; PULSE 72–93; RESP 16–19; TEMP 36.6–37.7; O2SAT 93–98
[2021-04-12] MEDS: oxyCODONE HCl Immed Release 5 MG TABLET PO (00:10)
[2021-04-12] MEDS: LORazepam 0.5 MG TABLET PO ×2 (03:57→16:38)
[2021-04-12 05:23] LABS: Basophils Percent Auto 0.4 % (0-2); Hemoglobin 10.5 g/dl (14.0-18.0); Imm Gran Abs Auto 0.06 X10*3/uL (0.00-0.03); Imm Gran Pct Auto 0.8 % (0.0-0.4); MANUAL DIFF FLAG SCAN; Monocytes Percent Auto 9.2 % (2-11); PLT CLUMP 1; SCAN SMEAR FLAG 1
[2021-04-12 05:25] LABS: Eosinophils Percent Auto 0.5 % (0-4); Hematocrit 30.2 % (42-52); Lymphocytes Absolute Auto 1.6 X10*3/uL (1.2-4.9); Lymphocytes Percent Auto 21.9 % (20-40); Mean Corpuscular HGB Conc 34.8 g/dl (31.0-36.0); Mean Corpuscular Hemoglobin 29.6 pg (27.0-33.0); Mean Corpuscular Volume 85.1 fL (80-98); Mean Platelet Volume 10.8 fL (9.4-12.4); Monocytes Absolute Auto 0.7 X10*3/uL (0.1-1.2); Neutrophils Percent Auto 67.2 % (45-73); Platelet Count 121 X10*3/uL (160-400); Red Blood Count 3.55 X10*6/uL (4.60-5.80); Red Cell Distribution Width 12.7 % (11.0-16.0); White Blood Count 7.4 X10*3/uL (4.8-10.8)
[2021-04-12 05:43] LABS: Anion Gap 8 (12-20); Blood Urea Nitrogen 9 mg/dL (9-16); Calcium 7.7 mg/dL (8.4-10.2); Carbon Dioxide 28 mmol/L (22-29); Chloride 102 mmol/L (96-108); Creatinine Clr Calc Pharmacy 75.9; Estimated Glomerular Filt Rate > 60; Glucose Fasting 101 mg/dL (60-99); Potassium 3.7 mmol/L (3.3-5.1); Sodium 134 mmol/L (135-145)
[2021-04-12 05:44] LABS: SLIDE REVIEW VERIFIED
[2021-04-12] MEDS: Dextrose 5 % and 0.45 % NaCl 1,000 ML 80 ML IVCONT (05:57)
--- NOTE | 2021-04-12 08:32 | P.PNOP_ITS ---
Subjective Subjective Date of Service: 04/12/21 Interval history: POD 2 s/p LT JESSICA No overnight events resting in bed did not work with PT yesterday PM due to med issue/ discomfort Physical Exam Vital Signs: Vital Signs: Last Vital Signs Temp 99.8 F 04/12/21 08:00 Pulse 93 04/12/21 08:00 Resp 17 04/12/21 08:00 BP 122/81 04/12/21 08:00 Pulse Ox 96 04/12/21 08:00 Body Mass Index 30.4 Const: General: cooperative, healthy appearing and no acute distress Resp: Effort & Inspection: normal respiratory effort and able to speak in complete sentences Cardio: Rate: regular rate Peripheral pulses: Peripheral pulses 2+ throughout GI: Palpation (GI): Soft to palpation Skin: General skin exam: no rashes or lesions noted Extrem: Other: bandage clean dry and intact. No erythema or effusion. Calf supple nontender. Neurovascularly intact. Procedures Date of Service Date of Service: 04/12/21 Progress Note: A&P Assessment and plan (1) S/P total left hip arthroplasty: Status: Acute Assessment and Plan: * Continue pain mgmnt * Continue lovenox * continue PT/OT * Dispo planning-Pending PT eval, pain mgmnt Fall Risk Details Current Medications: Current Medications Acetaminophen (Acetaminophen 325 Mg Tablet) 650 mg PO ONCE PRN PRN Reason: Pain, Mild (Pain Scale 1-3) Acetaminophen (Acetaminophen 325 Mg Tablet) 650 mg PO Q6H PRN PRN Reason: Pain, Mild (Pain Scale 1-3) Celecoxib (Celecoxib 200 Mg Capsule) 200 mg PO BID [facility] Last Admin: 04/11/21 21:08 Dose: 200 mg Documented by: Docusate Sodium (Docusate Sodium 100 Mg Capsule) 100 mg PO BID [facility] Last Admin: 04/11/21 21:12 Dose: Not Given Documented by: Enoxaparin Sodium (Enoxaparin Sodium 40 Mg/0.4 Ml Syringe) 40 mg SUBCUT Q24H [facility] Last Admin: 04/11/21 10:59 Dose: Not Given Documented by: Hydrochlorothiazide (Hydrochlorothiazide 25 Mg Tablet) 25 mg PO DAILY YENI; Protocol Hydromorphone HCl (Hydromorphone Hcl 0.5 Mg/0.5 Ml Syringe) 0.5 mg IVPUSH Q5M PRN; Protocol PRN Reason: Pain, Severe (Pain Scale 7-10) Last Admin: 04/11/21 10:49 Dose: 0.5 mg Documented by: Hydromorphone HCl (Hydromorphone Hcl 0.5 Mg/0.5 Ml Syringe) 0.25 mg IVPUSH Q4H PRN; Protocol PRN Reason: Pain, Severe (Pain Scale 7-10) Last Admin: 04/11/21 15:35 Dose: 0.25 mg Documented by: Dextrose/Sodium Chloride (D51/2ns) 1,000 mls @ 80 mls/hr IVCONT .[id number] YENI Last Admin: 04/12/21 05:57 Dose: 80 mls/hr Documented by: Cefazolin Sodium/Dextrose (Ancef) 2 gm in 50 mls @ 100 mls/hr IV POSTOP YENI Lorazepam (Lorazepam 0.5 Mg Tablet) 0.5 mg PO TID PRN PRN Reason: Anxiety Last Admin: 04/12/21 03:57 Dose: 0.5 mg Documented by: Losartan Potassium (Losartan Potassium 25 Mg Tablet) 25 mg PO DAILY [facility]; Protocol Metoprolol Succinate (Metoprolol Succinate Er 100 Mg Tab.Er.24h) 100 mg PO DAILY [facility]; Protocol Last Admin: 04/11/21 08:27 Dose: Not Given Documented by: Nicotine (Nicotine 7 Mg Patch.Td24) 7 mg TRANSDERMA DAILY [facility] Last Admin: 04/11/21 08:18 Dose: 7 mg Documented by: Ondansetron HCl (Ondansetron Hcl 4 Mg/2 Ml Vial) 4 mg IVPUSH ONCE PRN PRN Reason: Nausea and Vomiting Last Admin: 04/11/21 10:49 Dose: 4 mg Documented by: Ondansetron HCl (Ondansetron Hcl 4 Mg/2 Ml Vial) 4 mg IVPUSH Q8H PRN PRN Reason: Nausea and Vomiting Oxycodone HCl (Oxycodone Hcl Immed Release 5 Mg Tablet) 10 mg PO Q4H PRN PRN Reason: Pain, Moderate (Pain Scale 4-6 Oxycodone HCl (Oxycodone Hcl Er 10 Mg Tab.Er.12h) 10 mg PO BID [facility] Last Admin: 04/11/21 21:08 Dose: 10 mg Documented by: Pharmacy Consult (Consult Rx Perform Med Rec) 1 each MISCELLANE ONCE PRN PRN Reason: Consult order Sodium Chloride (0.9 % Sodium Chloride Flush 3 Ml Syringe) 3 ml IVFLUSH QSHIFT [facility] Last Admin: 04/12/21 00:24 Dose: Not Given Documented by: Time Spent With Patient Time: Total time spent is greater than 50% in coordination of care (as documented) at patient's floor/unit and/or counseling patient: Time with patient: less than 15 minutes Quality Stroke Does the patient have a stroke diagnosis?: No VTE Prior VTE?: No VTE Risk Level:: Surgical - high VTE Device Contraindication: N/A - Device Ordered VTE Drug Contraindication: N/A - Med Ordered
[2021-04-12] MEDS: hydroCHLOROthiazide 25 MG TABLET PO (08:38)
[2021-04-12] MEDS: Nicotine 7 MG PATCH.TD24 TRANSDERMA (08:38)
[2021-04-12] MEDS: Losartan Potassium 25 MG TABLET PO (08:39)
[2021-04-12] MEDS: Metoprolol Succinate ER 100 MG TAB.ER.24H PO (08:39)
[2021-04-12] MEDS: Celecoxib 200 MG CAPSULE PO ×2 (08:39→20:58)
[2021-04-12] MEDS: oxyCODONE HCl ER 10 MG TAB.ER.12H PO ×2 (08:39→20:58)
[2021-04-12] MEDS: Docusate Sodium 100 MG CAPSULE PO (08:39)
[2021-04-12] MEDS: 0.9 % Sodium Chloride Flush 3 ML SYRINGE IVFLUSH (08:39)
[2021-04-12] MEDS: oxyCODONE HCl Immed Release 5 MG TABLET 10 MG PO (11:14)
--- NOTE | 2021-04-12 13:26 | P.PNIM_ITS ---
Subjective Subjective Date of Service: 04/12/21 Interval History: Seen and examined this morning Follow-up for medical consult, status post left total hip arthroplasty Having some left sided pain. Denies chest pain, shortness of breath. Tolerating diet without nausea, vomiting, abdominal pain Review of Systems Review of Systems: Yes all other systems are reviewed and are negative Constitutional Constitutional: Denies chills and Denies fever(s) Cardiovascular Cardiovascular: Denies chest pain Respiratory Respiratory: Denies cough Gastrointestinal Gastrointestinal: Denies abdominal pain Physical Exam Vital Signs: Vital Signs: Last Vital Signs Temp 99.4 F 04/12/21 12:00 Pulse 75 04/12/21 12:00 Resp 16 04/12/21 12:00 BP 125/86 04/12/21 12:00 Pulse Ox 97 04/12/21 12:00 Body Mass Index 30.4 Const: General: comfortable, alert and awake Nutritional Appearance: well nourished Orientation/consciousness: patient oriented x3 HENMT: Head: Yes normocephalic and Yes atraumatic Eyes: Sclerae: sclerae normal Chest: Chest palpation & inspection: normal inspection of the chest Resp: Effort & Inspection: normal respiratory effort and no respiratory distress Cardio: Rate: regular rate Rhythm: regular rhythm GI: Palpation (GI): Soft to palpation and nontender Neuro: General: patient oriented x3 Cranial nerves: Yes CN's II-XII intact bilaterally and Yes Bilaterally intact EOM present Objective Data Active Medications Acetaminophen (Acetaminophen 325 Mg Tablet) 650 mg PO ONCE PRN PRN Reason: Pain, Mild (Pain Scale 1-3) Acetaminophen (Acetaminophen 325 Mg Tablet) 650 mg PO Q6H PRN PRN Reason: Pain, Mild (Pain Scale 1-3) Celecoxib (Celecoxib 200 Mg Capsule) 200 mg PO BID [facility] Last Admin: 04/12/21 08:39 Dose: 200 mg Documented by: JULES Docusate Sodium (Docusate Sodium 100 Mg Capsule) 100 mg PO BID [facility] Last Admin: 04/12/21 08:39 Dose: 100 mg Documented by: JULES Enoxaparin Sodium (Enoxaparin Sodium 40 Mg/0.4 Ml Syringe) 40 mg SUBCUT Q24H [facility] Last Admin: 04/12/21 10:46 Dose: Not Given Documented by: JULES Non-Admin Reason: Patient Refused Hydrochlorothiazide (Hydrochlorothiazide 25 Mg Tablet) 25 mg PO DAILY [facility]; Protocol Last Admin: 04/12/21 08:38 Dose: 25 mg Documented by: JULES Hydromorphone HCl (Hydromorphone Hcl 0.5 Mg/0.5 Ml Syringe) 0.5 mg IVPUSH Q5M PRN; Protocol PRN Reason: Pain, Severe (Pain Scale 7-10) Last Admin: 04/11/21 10:49 Dose: 0.5 mg Documented by: Hydromorphone HCl (Hydromorphone Hcl 0.5 Mg/0.5 Ml Syringe) 0.25 mg IVPUSH Q4H PRN; Protocol PRN Reason: Pain, Severe (Pain Scale 7-10) Last Admin: 04/11/21 15:35 Dose: 0.25 mg Documented by: JULES Dextrose/Sodium Chloride (D51/2ns) 1,000 mls @ 80 mls/hr IVCONT .[id number] [facility] Last Admin: 04/12/21 05:57 Dose: 80 mls/hr Documented by: ARPIT Cefazolin Sodium/Dextrose (Ancef) 2 gm in 50 mls @ 100 mls/hr IV POSTOP [facility] Lorazepam (Lorazepam 0.5 Mg Tablet) 0.5 mg PO TID PRN PRN Reason: Anxiety Last Admin: 04/12/21 03:57 Dose: 0.5 mg Documented by: ARPIT Losartan Potassium (Losartan Potassium 25 Mg Tablet) 25 mg PO DAILY [facility]; Protocol Last Admin: 04/12/21 08:39 Dose: 25 mg Documented by: JULES Metoprolol Succinate (Metoprolol Succinate Er 100 Mg Tab.Er.24h) 100 mg PO DAILY [facility]; Protocol Last Admin: 04/12/21 08:39 Dose: 100 mg Documented by: JULES Nicotine (Nicotine 7 Mg Patch.Td24) 7 mg TRANSDERMA DAILY [facility] Last Admin: 04/12/21 08:38 Dose: 7 mg Documented by: JULES Ondansetron HCl (Ondansetron Hcl 4 Mg/2 Ml Vial) 4 mg IVPUSH ONCE PRN PRN Reason: Nausea and Vomiting Last Admin: 04/11/21 10:49 Dose: 4 mg Documented by: JULES Ondansetron HCl (Ondansetron Hcl 4 Mg/2 Ml Vial) 4 mg IVPUSH Q8H PRN PRN Reason: Nausea and Vomiting Oxycodone HCl (Oxycodone Hcl Immed Release 5 Mg Tablet) 10 mg PO Q4H PRN PRN Reason: Pain, Moderate (Pain Scale 4-6 Last Admin: 04/12/21 11:14 Dose: 10 mg Documented by: JULES Oxycodone HCl (Oxycodone Hcl Er 10 Mg Tab.Er.12h) 10 mg PO BID [facility] Last Admin: 04/12/21 08:39 Dose: 10 mg Documented by: JULES Pharmacy Consult (Consult Rx Perform Med Rec) 1 each MISCELLANE ONCE PRN PRN Reason: Consult order Sodium Chloride (0.9 % Sodium Chloride Flush 3 Ml Syringe) 3 ml IVFLUSH QSHIFT [facility] Last Admin: 04/12/21 08:39 Dose: 3 ml Documented by: JULES Labs CBC & Chem 7: 04/12/21 04:46 04/12/21 04:46 Labs: Laboratory Results - last 24 hr 04/12/21 04/12/21 04:46 04:46 MCV 85.1 MCH 29.6 MCHC 34.8 RDW 12.7 Plt Count 121 L MPV 10.8 Immature Gran % (Auto) 0.8 H Neut % (Auto) 67.2 Lymph % (Auto) 21.9 [place] % (Auto) 9.2 Eos % (Auto) 0.5 Baso % (Auto) 0.4 Lymph # (Auto) 1.6 [place] # (Auto) 0.7 Eos # (Auto) 0.0 Baso # (Auto) 0.0 Abs Immat Gran (auto) 0.06 H Absolute Neuts (auto) 5.0 Absolute Nucleated RBC 0.000 Nucleated RBC % (auto) 0.0 Smear Tech's Comments VERIFIED Anion Gap 8 L Estim Creat Clear Calc 75.9 Estimated GFR > 60 Fasting Glucose 101 H Calcium 7.7 L Assessment and Plan (1) HTN (hypertension): Status: Acute Assessment and Plan: 75yo M with HTN, PTSD, anxiety, tobacco abuse POD #2 left JESSICA + TRACEE for pos traumatic OA medicine consultation for management of comorbid issues HTN Blood pressure controlled - continue metoprolol succinate PTSD/anxiety - prn lorazepam tobacco abuse - NRT VTE ppx as per primary Ortho team We will sign off at this time. Please feel free to re-consult us if any acute medical conditions arise attending: dr. clark Quality Stroke Does the patient have a stroke diagnosis?: No VTE Prior VTE?: No VTE Risk Level:: Surgical - high VTE Device Contraindication: N/A - Device Ordered VTE Drug Contraindication: N/A - Med Ordered
--- NOTE | 2021-04-12 14:17 | MHC.CM.PN ---
CM MET W/PT D/T PHYSICAL THERAPY RECOMMENDING STR, PT IS AGREEABLE AND PREFERS REFERRALS CLOSE TO HIS HOME ON [address]. PT ALSO REPORTS [facility] AND IS AWARE HE MAY NEED TO GO TO SPECIFIC FACILITIES, CM WILL PLACE REFERRALS FOR PT. D/C PLAN: [facility]
--- NOTE | 2021-04-12 15:13 | MHC.CM.PN ---
CM WAS GIVEN VERBAL PERMISSION TO SPEAK W/DTR CHARU WHO PT REPORTS IS HIS HCP, CM LOOKING FOR COPY OF HCP, MESSAGE LEFT AT 2:40PM [phone], CM RECEIVED A PHONE CALL FROM PT'S DTR CHARU AT 3:05AM WHO WAS CRYING AND DIFFICULT TO CONSOLE, CHARU REPORTS SHE DOES NOT WANT PT TO GO TO STR AND WANTS HIM HOME, CM REQUESTED COPY OF HCP AND DTR REPORTS SHE DOESN'T HAVE A COPY BUT THERE IS ONE ON FILE AT [facility], CM WILL CONTACT [place] AND SEE IF THEY WILL FAX COPY TO CM. CM ALSO RECEIVED A CALL FROM KIM FROM DR GRANDA OFF AT 3:30PM ADVOCATING FOR PT TO GO HOME, KIM REPORTS THAT PT'S DTR HAS BEEN PROVIDING 24HR CARE FOR SEVERAL MONTHS AND THAT THEY HAVE PAIRED PT WITH A SPECIFIC PHYSICAL THERAPIST [facility], HOME IS SET UP TO MEET PT NEEDS AND STRONGLY ENCOURAGING CM TO SEND PT HOME W/SERVICES, KIM DOES NOT FEEL PT WILL BE WELL CARED FOR WHILE IN STR. CM WILL ASK PHYSICAL THERAPY TO SPEAK W/ORTHO PA IN AM.
--- NOTE | 2021-04-12 16:13 | MHC.CM.PN ---
CM CATTEMPTED TO CONTACT [facility] [phone] AT [phone] TO REQUEST COPY OF HCP, NO ANSWER, MESSAGE LEFT W/CM CONTACT INFO.
[2021-04-12] MEDS: HYDROmorphone HCl 0.5 MG/0.5 ML SYRINGE 0.25 MG IVPUSH (20:58)
[2021-04-13] VITALS (9 sets, daily range): BP systolic 112–134; BP diastolic 70–87; PULSE 58–71; RESP 16–18; TEMP 36.3–37.4; O2SAT 98–99
[2021-04-13] MEDS: Dextrose 5 % and 0.45 % NaCl 1,000 ML 80 ML IVCONT (02:14)
[2021-04-13] MEDS: LORazepam 0.5 MG TABLET PO ×2 (02:24→12:06)
[2021-04-13 05:29] LABS: Basophils Percent Auto 0.6 % (0-2); Hematocrit 28.6 % (42-52); Imm Gran Abs Auto 0.05 X10*3/uL (0.00-0.03); Mean Corpuscular Volume 84.9 fL (80-98); Monocytes Absolute Auto 0.6 X10*3/uL (0.1-1.2); PLT CLUMP 1; Red Blood Count 3.37 X10*6/uL (4.60-5.80); SCAN SMEAR FLAG 1
[2021-04-13 05:31] LABS: Eosinophils Absolute Auto 0.1 X10*3/uL (0.0-0.4); Eosinophils Percent Auto 1.3 % (0-4); Imm Gran Pct Auto 0.7 % (0.0-0.4); Lymphocytes Absolute Auto 1.8 X10*3/uL (1.2-4.9); Lymphocytes Percent Auto 26.6 % (20-40); Mean Corpuscular Hemoglobin 29.7 pg (27.0-33.0); Mean Platelet Volume 10.4 fL (9.4-12.4); Monocytes Percent Auto 9.2 % (2-11); Neutrophils Absolute Auto 4.1 X10*3/uL (2.0-8.3); Neutrophils Percent Auto 61.6 % (45-73); Red Cell Distribution Width 12.5 % (11.0-16.0); White Blood Count 6.7 X10*3/uL (4.8-10.8)
[2021-04-13 05:38] LABS: Platelet Count 117 X10*3/uL (160-400)
[2021-04-13 05:39] LABS: MANUAL DIFF FLAG NO
[2021-04-13 05:46] LABS: Anion Gap 8 (12-20); Blood Urea Nitrogen 9 mg/dL (9-16); Calcium 7.8 mg/dL (8.4-10.2); Carbon Dioxide 28 mmol/L (22-29); Chloride 101 mmol/L (96-108); Estimated Glomerular Filt Rate > 60; Glucose Fasting 93 mg/dL (60-99); Potassium 3.4 mmol/L (3.3-5.1); Sodium 134 mmol/L (135-145)
--- NOTE | 2021-04-13 07:12 | P.DS_ITS ---
DS: Providers Provider Date of admission: 04/10/21 06:44 Primary care physician: Karmen Hinson MD Consults: 04/10/21 12:28 Consult to Hospitalist Routine Consulting Provider: Hospitalist Reason For Exam: post op medical management, h/o uncontrolled HTN DS: Diagnosis Discharge Diagnosis (1) HTN (hypertension): Status: Acute DS: Summary Hospital Course Hospital Course: The patient underwent a successful left total hip arthroplasty, they were transferred to PACU and then to the floor to recover. During their stay, their vitals were stable, afebrile at 99.4. Labs were unremarkable, H/H 10.0/28.6. POD 1 they were started on Lovenox 40mg subq for DVT ppx, they also received Physical Therapy services twice a day. Prior to discharge, their dressing was changed, incision clean dry and intact, new Aquacel dressing applied and the plan was to be discharged home with VNA services. Time Spent with Patient Time attestation: Total time spent providing and/or coordinating discharge services: Physical Exam Vital Signs: Vital Signs: Last Vital Signs Temp 99.4 F 04/13/21 04:00 Pulse 66 04/13/21 04:00 Resp 18 04/13/21 04:00 BP 112/72 04/13/21 04:00 Pulse Ox 98 04/13/21 04:00 Body Mass Index 30.4 Const: General: cooperative, healthy appearing and no acute distress Resp: Effort & Inspection: normal respiratory effort and able to speak in complete sentences Cardio: Rate: regular rate Peripheral pulses: Peripheral pulses 2+ throughout GI: Palpation (GI): Soft to palpation Skin: Lesions: no lesions Rashes: no rashes Extrem: Other: Left hip no ecchymosis, erythema or drainage. April intact. New Aquacel dressing applied. NVI. DS: Data Data Completed and Pending Completed studies during hospitalization [Text1]: Pending at discharge 04/10/21 09:48 Surgical [PTH] Routine Labs on day of discharge: Laboratory Results - last 24 hr 04/13/21 04/13/21 05:18 05:18 WBC 6.7 RBC 3.37 L Hgb 10.0 L Hct 28.6 L MCV 84.9 MCH 29.7 MCHC 35.0 RDW 12.5 Plt Count 117 L MPV 10.4 Immature Gran % (Auto) 0.7 H Neut % (Auto) 61.6 Lymph % (Auto) 26.6 [place] % (Auto) 9.2 Eos % (Auto) 1.3 Baso % (Auto) 0.6 Lymph # (Auto) 1.8 [place] # (Auto) 0.6 Eos # (Auto) 0.1 Baso # (Auto) 0.0 Abs Immat Gran (auto) 0.05 H Absolute Neuts (auto) 4.1 Absolute Nucleated RBC 0.000 Nucleated RBC % (auto) 0.0 Sodium 134 L Potassium 3.4 Chloride 101 Carbon Dioxide 28 Anion Gap 8 L BUN 9 Creatinine 0.75 Estim Creat Clear Calc 81.0 Estimated GFR > 60 Fasting Glucose 93 Calcium 7.8 L Discharge Plan Discharge Patient Disposition: Xfer SNF Discharge Diagnosis: s/p LT JESSICA Referrals: Lynn Loco, [facility] [Physician Script Worker] - 2 Weeks (04/26 @ 11:30 am) Discharge Medications: New celecoxib 200 mg Capsule 200 mg PO BID 30 Days Qty: 60 RF: 0 acetaminophen 325 mg Tablet 650 mg PO Q6H PRN (Reason: Pain, Mild (Pain Scale 1-3)) 30 Days Qty: 240 RF: 0 oxycodone 5 mg Tablet 10 mg PO Q4H PRN (Reason: Pain, Moderate (Pain Scale 4-6) 7 Days Qty: 42 RF: 0 enoxaparin 40 mg/0.4 mL Syringe 40 mg subcut Q24H 42 Days Qty: 16.8 RF: 0 ondansetron HCl (PF) 4 mg/2 mL Solution 4 mg IVPUSH Q8H PRN (Reason: Nausea And Vomiting) 30 Days Qty: 60 RF: 0 Continued metoprolol succinate 50 mg Tablet Extended Release 24 Hr 100 mg PO DAILY RF: 0 acetaminophen [Acetaminophen Extra Strength] 500 mg Tablet 1,000 mg PO Q6H PRN (Reason: Pain) RF: 0 lorazepam 0.5 mg Tablet 0.5 mg PO TID PRN (Reason: Anxiety) RF: 0 losartan 25 mg Tablet 25 mg PO DAILY RF: 0 hydrochlorothiazide 25 mg Tablet 25 mg PO DAILY RF: 0 Diet: regular diet Activity on Discharge: Use cane or walker Stand Alone Forms: Patient Portal Discharge page Care Plan Goals: Restore function of joint Health Concerns: Monitor Blood Pressure Plan of Treatment: Physical Therapy Pain management DVT prophylaxis Assessment: * Physical Therapy for Total knee arthroplasty: gait training, ROM 0-12, quad strength * Limit stair climbing * No showering, no tub bath-keep dressing clean, dry and intact * No driving x6 weeks * Continue Aspirin twice a day x 4 weeks * Follow up with [facility] in 2 weeks
--- NOTE | 2021-04-13 08:05 | P.DS_ITS ---
DS: Providers Provider Date of Service: 04/13/21 Date of admission: 04/10/21 06:44 Primary care physician: Karmen Hinson MD Consults: 04/10/21 12:28 Consult to Hospitalist Routine Consulting Provider: Hospitalist Reason For Exam: post op medical management, h/o uncontrolled HTN DS: Diagnosis Discharge Diagnosis (1) HTN (hypertension): Status: Acute (2) S/P total left hip arthroplasty: Status: Acute DS: Summary Hospital Course Hospital Course: The patient underwent a successful left total hip arthroplasty, they were transferred to PACU and then to the floor to recover. During their stay, their vitals were stable, afebrile at 99.4. Labs were unremarkable, H/H 10.0/28.6. POD 1 they were started on Lovenox 40mg subq for DVT ppx, they also received Phy sical Therapy services twice a day. Prior to discharge, their dressing was changed, incision clean dry and intact, new Aquacel dressing applied and the plan was to be discharged home with VNA services. Time Spent with Patient Time attestation: Total time spent providing and/or coordinating discharge services: Discharge coordination time: Less than 30 minutes Quality: Stroke Does the patient have a stroke diagnosis?: No Physical Exam Vital Signs: Vital Signs: Last Vital Signs Temp 98.9 F 04/13/21 08:00 Pulse 66 04/13/21 08:00 Resp 18 04/13/21 08:00 BP 134/87 04/13/21 08:00 Pulse Ox 99 04/13/21 08:00 Body Mass Index 30.4 Const: General: cooperative, healthy appearing and no acute distress Resp: Effort & Inspection: normal respiratory effort and able to speak in complete sentences Cardio: Rate: regular rate Peripheral pulses: Peripheral pulses 2+ throughout GI: Palpation (GI): Soft to palpation Skin: General skin exam: no rashes or lesions noted Extrem: Other: incision clean dry and intact. April intact. No erythema or effusion. Calf supple nontender. Neurovascularly intact. DS: Data Data Completed and Pending Completed studies during hospitalization [Text1]: Pending at discharge 04/10/21 09:48 Surgical [PTH] Routine Labs on day of discharge: Laboratory Results - last 24 hr 04/13/21 04/13/21 05:18 05:18 WBC 6.7 RBC 3.37 L Hgb 10.0 L Hct 28.6 L MCV 84.9 MCH 29.7 MCHC 35.0 RDW 12.5 Plt Count 117 L MPV 10.4 Immature Gran % (Auto) 0.7 H Neut % (Auto) 61.6 Lymph % (Auto) 26.6 [place] % (Auto) 9.2 Eos % (Auto) 1.3 Baso % (Auto) 0.6 Lymph # (Auto) 1.8 [place] # (Auto) 0.6 Eos # (Auto) 0.1 Baso # (Auto) 0.0 Abs Immat Gran (auto) 0.05 H Absolute Neuts (auto) 4.1 Absolute Nucleated RBC 0.000 Nucleated RBC % (auto) 0.0 Sodium 134 L Potassium 3.4 Chloride 101 Carbon Dioxide 28 Anion Gap 8 L BUN 9 Creatinine 0.75 Estim Creat Clear Calc 81.0 Estimated GFR > 60 Fasting Glucose 93 Calcium 7.8 L Discharge Plan Discharge Patient Disposition: Home Health Service Discharge Diagnosis: s/p LT JESSICA Referrals: Lynn Loco PA-C [Physician Communication Consultant] - 2 Weeks (04/26 @ 11:30 am) Discharge Medications: New celecoxib 200 mg Capsule 200 mg PO BID 30 Days Qty: 60 RF: 0 acetaminophen 325 mg Tablet 650 mg PO Q6H PRN (Reason: Pain, Mild (Pain Scale 1-3)) 30 Days Qty: 240 RF: 0 oxycodone 5 mg Tablet 10 mg PO Q4H PRN (Reason: Pain, Moderate (Pain Scale 4-6) 7 Days Qty: 42 RF: 0 enoxaparin 40 mg/0.4 mL Syringe 40 mg subcut Q24H 42 Days Qty: 16.8 RF: 0 ondansetron HCl (PF) 4 mg/2 mL Solution 4 mg IVPUSH Q8H PRN (Reason: Nausea And Vomiting) 30 Days Qty: 60 RF: 0 Continued metoprolol succinate 50 mg Tablet Extended Release 24 Hr 100 mg PO DAILY RF: 0 acetaminophen [Acetaminophen Extra Strength] 500 mg Tablet 1,000 mg PO Q6H PRN (Reason: Pain) RF: 0 lorazepam 0.5 mg Tablet 0.5 mg PO TID PRN (Reason: Anxiety) RF: 0 losartan 25 mg Tablet 25 mg PO DAILY RF: 0 hydrochlorothiazide 25 mg Tablet 25 mg PO DAILY RF: 0 Discharge Orders: Discharge Order (Routine); Ordered 04/13/21 Ordered By: Alvina Murillo Diet: regular diet Activity on Discharge: Use cane or walker Stand Alone Forms: Patient Portal Discharge page Care Plan Goals: Restore function of joint Health Concerns: Monitor Blood Pressure Plan of Treatment: Physical Therapy Pain management DVT prophylaxis Assessment: * Physical Therapy for Total hip arthroplasty: posterior precautions, gait training, ROM, strength * Limit stair climbing * No showering, no tub bath-keep dressing clean, dry and intact * No driving x6 weeks * Continue Lovenox tabs once a day x 6 weeks * [place] up with [facility] [place] [facility] weeks
--- NOTE | 2021-04-13 08:06 | W.MHC.F2F ---
Service Date Service Date: 04/13/21 Encounter Date of encounter: 04/13/21 Reasons for Services Reason for halfway: postoperative assessment and/or care, medication management, medication treatment and other (monitor BP) Reason for physical therapy: home safety and mobility, therapeutic exercises, restore joint function, gait/transfer training, ADL training and energy conservation Reason for occupational therapy: home safety and mobility, therapeutic exercises, restore joint function, gait/transfer training, ADL training and energy conservation MD Overseeing Care: Osvaldo eKn Homebound: Leaving the home is medically contraindicated at this time without the asist of a device and/or another person due th the listed conditions above and below. Reason homebound: unsteady gait / fall risk, fall risk related to blood pressure changes, leg weakness, pain with ambulation, pain with transfers, poor balance / fall risk and unable to drive Homebound supporting statement: Pt. is considered home bound due to recent surgery. Unable to drive, poor balance, poor gait mechanics. Certification: Based on the above findings, I certify that this patient is confined to the home and needs intermittent halfway care, physical therapy and/or speech therapy, or continues to need occupational therapy. The patient is under my care, and I have initiated the establishment of the plan of care. The patient will be followed by a physician who will periodically review the plan of care.
[2021-04-13] MEDS: Nicotine 7 MG PATCH.TD24 TRANSDERMA (08:35)
[2021-04-13] MEDS: Docusate Sodium 100 MG CAPSULE PO (08:35)
[2021-04-13] MEDS: Losartan Potassium 25 MG TABLET PO (08:35)
[2021-04-13] MEDS: Celecoxib 200 MG CAPSULE PO ×2 (08:35→20:22)
[2021-04-13] MEDS: Metoprolol Succinate ER 100 MG TAB.ER.24H PO (08:36)
[2021-04-13] MEDS: hydroCHLOROthiazide 25 MG TABLET PO (08:36)
[2021-04-13] MEDS: 0.9 % Sodium Chloride Flush 3 ML SYRINGE IVFLUSH ×2 (08:36→13:58)
[2021-04-13] MEDS: oxyCODONE HCl ER 10 MG TAB.ER.12H PO ×2 (08:36→20:23)
--- NOTE | 2021-04-13 09:03 | MHC.CM.PN ---
CM spoke w/physical therapist who are requesting pt's dtr come in to see how pt is doing, CM called pt's dtr at 9:00am and left message w/request to come in and observe how pt is doing w/physical therapy. CM also sent out referrals to several VNA's including [facility] who did report they can take pt for jail and home PT. D/C Plan: Home w/[facility] vs STR, action for bls transport
--- NOTE | 2021-04-13 09:13 | MHC.CM.PN ---
CM RECEIVED MESSAGE FROM [facility] AT 9:10AM REPORTING THEY HAVE NO ADVANCE DIRECTIVES ON FILE FOR PT.
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
[2021-04-13] MEDS: oxyCODONE HCl Immed Release 5 MG TABLET 10 MG PO ×2 (13:58→21:49)
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
[2021-04-14] VITALS (7 sets, daily range): BP systolic 106–142; BP diastolic 70–88; PULSE 58–78; RESP 18–19; TEMP 36.2–37.5; O2SAT 96–98
[2021-04-14] MEDS: 0.9 % Sodium Chloride Flush 3 ML SYRINGE IVFLUSH ×2 (00:04→08:15)
[2021-04-14] MEDS: oxyCODONE HCl Immed Release 5 MG TABLET 10 MG PO ×2 (04:34→16:42)
[2021-04-14 05:13] LABS: MANUAL DIFF FLAG NO
[2021-04-14 05:15] LABS: Basophils Percent Auto 0.4 % (0-2); Eosinophils Absolute Auto 0.1 X10*3/uL (0.0-0.4); Eosinophils Percent Auto 1.3 % (0-4); Hematocrit 31.5 % (42-52); Hemoglobin 11.1 g/dl (14.0-18.0); Imm Gran Abs Auto 0.04 X10*3/uL (0.00-0.03); Imm Gran Pct Auto 0.5 % (0.0-0.4); Lymphocytes Absolute Auto 1.1 X10*3/uL (1.2-4.9); Mean Corpuscular HGB Conc 35.2 g/dl (31.0-36.0); Mean Corpuscular Hemoglobin 29.8 pg (27.0-33.0); Mean Corpuscular Volume 84.7 fL (80-98); Mean Platelet Volume 10.4 fL (9.4-12.4); Monocytes Absolute Auto 0.5 X10*3/uL (0.1-1.2); Monocytes Percent Auto 5.9 % (2-11); Neutrophils Absolute Auto 6.4 X10*3/uL (2.0-8.3); Neutrophils Percent Auto 77.9 % (45-73); Platelet Count 162 X10*3/uL (160-400); Red Blood Count 3.72 X10*6/uL (4.60-5.80); Red Cell Distribution Width 12.6 % (11.0-16.0); White Blood Count 8.2 X10*3/uL (4.8-10.8)
[2021-04-14 05:36] LABS: Anion Gap 12 (12-20); Blood Urea Nitrogen 10 mg/dL (9-16); Carbon Dioxide 29 mmol/L (22-29); Chloride 96 mmol/L (96-108); Estimated Glomerular Filt Rate > 60; Glucose Fasting 99 mg/dL (60-99); Potassium 3.6 mmol/L (3.3-5.1); Sodium 133 mmol/L (135-145)
[2021-04-14] MEDS: Nicotine 7 MG PATCH.TD24 TRANSDERMA (08:14)
[2021-04-14] MEDS: Docusate Sodium 100 MG CAPSULE PO (08:15)
[2021-04-14] MEDS: oxyCODONE HCl ER 10 MG TAB.ER.12H PO ×2 (08:15→20:03)
[2021-04-14] MEDS: Metoprolol Succinate ER 100 MG TAB.ER.24H PO (08:15)
[2021-04-14] MEDS: Celecoxib 200 MG CAPSULE PO ×2 (08:15→20:02)
[2021-04-14] MEDS: hydroCHLOROthiazide 25 MG TABLET PO (08:15)
[2021-04-14] MEDS: Losartan Potassium 25 MG TABLET PO (08:15)
[2021-04-14] MEDS: LORazepam 0.5 MG TABLET PO ×2 (10:54→20:24)
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
[2021-04-14] MEDS: Enoxaparin Sodium 40 MG/0.4 ML SYRINGE SUBCUT (14:02)
--- NOTE | 2021-04-14 15:43 | MHC.CM.PN ---
P.T. EVALUATION S[facility] [employer]. [facility] WILL BE ABLE TO START CARE ON Friday04/16/21. PLAN IS FOR PATIENT TO RETURN HOME FRIDAY VIA AMBULANCE. IMM 04/14 IN CHART.
[2021-04-15] VITALS: BP 128/74; PULSE 61; RESP 18; TEMP 36.1; O2SAT 98
[2021-04-15] MEDS: oxyCODONE HCl Immed Release 5 MG TABLET 10 MG PO ×3 (01:38→09:47)
[2021-04-15] MEDS: Acetaminophen 325 MG TABLET 650 MG PO (01:39)
[2021-04-15 03:44] VITALS: BP 135/76; PULSE 55; RESP 17; TEMP 36.3; O2SAT 99
[2021-04-15 05:59] LABS: MANUAL DIFF FLAG NO
[2021-04-15 06:30] LABS: Basophils Percent Auto 0.8 % (0-2); Eosinophils Absolute Auto 0.1 X10*3/uL (0.0-0.4); Eosinophils Percent Auto 2.4 % (0-4); Hematocrit 28.6 % (42-52); Hemoglobin 9.7 g/dl (14.0-18.0); Imm Gran Abs Auto 0.03 X10*3/uL (0.00-0.03); Imm Gran Pct Auto 0.6 % (0.0-0.4); Lymphocytes Absolute Auto 1.7 X10*3/uL (1.2-4.9); Mean Corpuscular HGB Conc 33.9 g/dl (31.0-36.0); Mean Corpuscular Hemoglobin 28.9 pg (27.0-33.0); Mean Corpuscular Volume 85.1 fL (80-98); Mean Platelet Volume 10.5 fL (9.4-12.4); Monocytes Absolute Auto 0.5 X10*3/uL (0.1-1.2); Monocytes Percent Auto 9.4 % (2-11); Neutrophils Absolute Auto 2.9 X10*3/uL (2.0-8.3); Neutrophils Percent Auto 54.8 % (45-73); Platelet Count 176 X10*3/uL (160-400); Red Blood Count 3.36 X10*6/uL (4.60-5.80); Red Cell Distribution Width 12.5 % (11.0-16.0); White Blood Count 5.3 X10*3/uL (4.8-10.8)
[2021-04-15 06:39] LABS: Anion Gap 10 (12-20); Blood Urea Nitrogen 12 mg/dL (9-16); Calcium 7.8 mg/dL (8.4-10.2); Carbon Dioxide 31 mmol/L (22-29); Chloride 96 mmol/L (96-108); Creatinine Clr Calc Pharmacy 64.6; Estimated Glomerular Filt Rate > 60; Glucose Fasting 101 mg/dL (60-99); Potassium 3.9 mmol/L (3.3-5.1); Sodium 133 mmol/L (135-145)
[2021-04-15] MEDS: LORazepam 0.5 MG TABLET PO (06:59)
[2021-04-15 08:00] VITALS: BP 132/87; PULSE 60; RESP 16; TEMP 36.4; O2SAT 97
[2021-04-15] MEDS: oxyCODONE HCl ER 10 MG TAB.ER.12H PO (08:17)
[2021-04-15] MEDS: Losartan Potassium 25 MG TABLET PO (08:17)
[2021-04-15] MEDS: Metoprolol Succinate ER 100 MG TAB.ER.24H PO (08:17)
[2021-04-15] MEDS: hydroCHLOROthiazide 25 MG TABLET PO (08:17)
[2021-04-15] MEDS: Nicotine 7 MG PATCH.TD24 TRANSDERMA (08:18)
[2021-04-15] MEDS: Celecoxib 200 MG CAPSULE PO (08:18)
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
[2021-04-15] MEDS: Enoxaparin Sodium 40 MG/0.4 ML SYRINGE SUBCUT (09:48)
== END 2021-04-15 12:15 | disposition home health service (06) | DRG 470 ==
LOC: HO.SSSA 06:45 → HO.S3 11:47
PROVIDERS: Physician Assistant; Admitting Provider Orthopaedic Surgery; PCP Internal Medicine; Visit Provider Orthopaedic Surgery
PROC: 0SRB0JA Replacement of Left Hip Joint with Synthetic Substitute, Uncemented, Open Approach (ICD-10-PCS; CPT 27130; principal; 2021-04-10 07:30)
DX: M87.052 Idiopathic aseptic necrosis of left femur (principal); F17.210 Nicotine dependence, cigarettes, uncomplicated; Z71.6 Tobacco abuse counseling; I10 Essential (primary) hypertension; F43.10 Post-traumatic stress disorder, unspecified; Z20.822 Contact with and (suspected) exposure to COVID-19; Z79.899 Other long term (current) drug therapy
CPT/HCPCS: 36415; 72170; 80048; 85025; 86850; 86900; 86901; 87635; 87640; 87641; 88304; 88311; 97110; 97116; 97161; 97167; 97530; 97535; C1713; C1776; J0131; J0690; J1100; J1170; J1650; J2250; J2370; J2405; J3010

== ENCOUNTER → 2021-04-24 14:47 | Outpatient (BNVA) | payer MEDICARE, SELFPAY | PROVIDERS: PCP Internal Medicine; Visit Provider Orthopaedic Surgery ==

== ENCOUNTER → 2021-04-26 10:57 | Outpatient (BNVA) | payer MEDICARE, SELFPAY | PROVIDERS: PCP Internal Medicine; Visit Provider Physician Assistant | DX: Z47.1 Aftercare following joint replacement surgery (principal); Z96.642 Presence of left artificial hip joint | CPT/HCPCS: 99212 ==

== ENCOUNTER 2021-06-07 12:16 | Outpatient (REF) | payer MEDICARE, SELFPAY | END 2021-06-07 12:17 | disposition home or self-care (01) | LOC: HO.HOSX 12:16 | PROVIDERS: Visit Provider Orthopaedic Surgery | DX: Z13.89 Encounter for screening for other disorder (principal) ==